=== PATIENT | female | born 1985 | race Caucasian/White ===

== ENCOUNTER 2019-08-18 08:15 | Inpatient (IN) | payer MEDICAID, OTHER ==
[2019-08-18] MEDS ORDERED: cefOXitin 2 GM Vial ONE (08:29)
[2019-08-18] MEDS ORDERED: fentaNYL 250 MCG/5 ML SDV ONE ×2 (09:11→12:00)
[2019-08-18] MEDS ORDERED: Propofol 200 MG/20 ML SDV ONE (09:12)
[2019-08-18] MEDS ORDERED: Succinylcholine 200 MG/10 ML MDV ONE (09:12)
[2019-08-18] MEDS ORDERED: Glycopyrrolate 0.2 MG/ML 5 ML MDV ONE (09:12)
[2019-08-18] MEDS ORDERED: Neostigmine Methylsulfate 1 MG/ML 5 ML Syringe ONE (09:12)
[2019-08-18] MEDS ORDERED: Rocuronium 50 MG/5 ML Vial ONE (09:12)
[2019-08-18] MEDS ORDERED: Ondansetron 4 MG/2 ML SDV ONE (09:12)
[2019-08-18] MEDS ORDERED: Dexamethasone 4 MG/ML SDV ONE (09:12)
[2019-08-18] MEDS ORDERED: Scopolamine 1.5 MG Transdermal Patch TOP SCH (09:45)
[2019-08-18] MEDS ORDERED: Celecoxib 200 MG Cap PO ONE (09:45)
[2019-08-18] MEDS ORDERED: Acetaminophen 500 MG Tab PO ONE (09:45)
[2019-08-18] MEDS ORDERED: Gabapentin 300 MG Cap PO ONE (09:45)
[2019-08-18] MEDS ORDERED: Lactated Ringers 1,000 ML ONE (09:50)
[2019-08-18] MEDS ORDERED: Dextrose 5%-Lactated Ringers 1,000 ML IV SCH (10:30)
[2019-08-18] MEDS ORDERED: cefOXitin 2 GM in Sodium Chloride 0.9% 50 ML IV ONE (11:00)
[2019-08-18] MEDS ORDERED: Lidocaine 0.4%/D5W 2 GM/500 ML BAG IV SCH (11:30)
[2019-08-18] MEDS ORDERED: Lidocaine 2% 100 MG/5 ML Syringe IVPUSH SCH (11:30)
[2019-08-18] MEDS ORDERED: Ketamine 50 MG in Sodium Chloride 0.9% 49.5 ML IV SCH (11:30)
[2019-08-18] MEDS ORDERED: Ketamine 500 MG/5 ML MDV IV SCH (11:30)
[2019-08-18] MEDS ORDERED: Labetalol 20 MG/4 ML Syringe ONE (12:32)
[2019-08-18] MEDS ORDERED: hydrOXYzine HCl 100 MG/2 ML SDV IM ONE (13:36)
[2019-08-18] MEDS ORDERED: Metoclopramide 10 MG/2 ML SDV IVPUSH PRN (14:14)
[2019-08-18] MEDS ORDERED: diphenhydrAMINE 50 MG/ML SDV IVPUSH PRN (14:14)
[2019-08-18] MEDS ORDERED: Labetalol 20 MG/4 ML Syringe IVPUSH PRN (14:14)
[2019-08-18] MEDS ORDERED: Ondansetron 4 MG/2 ML SDV IVPUSH PRN (14:14)
[2019-08-18] MEDS ORDERED: SCOPOLAMINE PATCH CHECK TOP SCH (14:14)
[2019-08-18] MEDS ORDERED: HYDROmorphone 1 MG/ML Syringe IV PRN (14:14)
[2019-08-18] MEDS ORDERED: HYDROmorphone 0.5 MG/0.5 ML Syringe IVPUSH PRN (14:14)
[2019-08-18] MEDS ORDERED: hydrOXYzine HCl 100 MG/2 ML SDV IM PRN (14:14)
[2019-08-18] MEDS: Acetaminophen Soln 650 MG/20.3 ML UD Cup PO SCH ×2 (15:43→21:10)
[2019-08-18] MEDS ORDERED: MVI, Adult with Vitamin K 10 ML, Thiamine 200 MG, Chromium/Copper/Mang/Selen/Zn 1 ML in... IV SCH ×4 (16:00)
[2019-08-18] MEDS ORDERED: Pantoprazole 40 MG Vial IVPUSH SCH (16:00)
[2019-08-18] MEDS: cefOXitin 2 GM in Sodium Chloride 0.9% 50 ML IV SCH ×2 (16:42→22:20)
[2019-08-18] MEDS: Heparin Sodium 5,000 Units/ML Vial SUBCUT SCH (21:00)
[2019-08-18] MEDS: Gabapentin 250 MG/5 ML Solution ML 470 ML Bottle PO SCH (21:04)
[2019-08-18] MEDS: Dextrose 5%-Lactated Ringers 1,000 ML IV SCH (22:01)
[2019-08-19] MEDS: Dextrose 5%-Lactated Ringers 1,000 ML IV SCH (04:00)
[2019-08-19] MEDS ORDERED: Iopamidol 612 MG/ML 50 ML SDV PO STA (04:05)
[2019-08-19] MEDS: Acetaminophen Soln 650 MG/20.3 ML UD Cup PO SCH ×4 (04:06→21:01)
[2019-08-19] MEDS: cefOXitin 2 GM in Sodium Chloride 0.9% 50 ML IV SCH ×2 (04:42→12:59)
--- NOTE | 2019-08-19 06:10 | CRLCR ---
Indication: Gastric bypass Technique: Two views of the abdomen obtained following the administration of oral contrast. Comparison: None available Findings/Impression : Post gastrojejunostomy changes with a left upper quadrant drain. Contrast opacifies the gastric pouch and jejunal segments without high-grade obstruction or gross extravasation. Dictated by Silviano Zaidi MD @ 08/19/2019 6:08:45 AM Dictated by: Silviano Zaidi MD @ 08/19/2019 06:08:51 (Electronically Signed)
[2019-08-19] MEDS ORDERED: Ondansetron 4 MG Tab.DIS PO PRN (07:54)
[2019-08-19] MEDS ORDERED: hydrOXYzine HCl 25 MG Tab PO PRN (07:59)
[2019-08-19] MEDS ORDERED: Dextrose 5%-Lactated Ringers 1,000 ML IV SCH (08:00)
[2019-08-19] MEDS ORDERED: Escitalopram 10 MG Tab PO SCH (09:00)
[2019-08-19] MEDS: Celecoxib 200 MG Cap PO SCH (09:24)
[2019-08-19] MEDS: Gabapentin 250 MG/5 ML Solution ML 470 ML Bottle PO SCH ×3 (09:25→21:01)
[2019-08-19] MEDS: Heparin Sodium 5,000 Units/ML Vial SUBCUT SCH ×2 (09:25→20:57)
[2019-08-19] MEDS ORDERED: FLU Vacc QS2019-20(6MOS+)/PF 60 MCG/0.5 ML SYRINGE IM ONE (10:00)
--- NOTE | 2019-08-19 11:00 | PN ---
DATE OF SERVICE: 08/19/2019 SUBJECTIVE: Roxana is postoperative day 1. She is up, sitting in the chair. She has been walking. Vital signs have been stable. Oral intake recorded was 1820 and urine output was 4050. LILIANA drain put out 90 mL of a light pink drainage. She states her pain is controlled. She has no questions or concerns. OBJECTIVE: GENERAL: Roxana Dick is a pleasant 33-year-old female. She is alert and orientated. VITAL SIGNS: TPR is 99.3, 70, 16. Blood pressure 110/64. HEENT: Negative. NECK: Supple. HEART: Regular rate and rhythm. LUNGS: Clear. ABDOMEN: Dressing dry and intact. LILIANA drain intact. Abdominal binder is on. EXTREMITIES: Without peripheral edema. ASSESSMENT: Laparoscopic Shawn-en-Y gastric bypass surgery and liver biopsy for morbid obesity and hepatomegaly. Date of surgery, 08/18/2019. Surgeon, Murali Zamora MD. PLAN: 1. Decrease IV to 100 mL/hour. 2. Step 2 gastric bypass diet without cereal. 3. Dressing off, may shower. 4. Zofran 4 mg ODT q.4 hours p.r.n. nausea and Atarax 25 mg p.o. q.4 hours p.r.n. pain. 5. Communication order for 1 med cup every 20 minutes, totaling 3 per hour, record at bedside. 6. Good pulmonary toilet. 7. We will evaluate p.r.n. or in a.m. Mariola Flowers PA-C /[id number]
[2019-08-19] MEDS ORDERED: MVI, Adult with Vitamin K 10 ML, Thiamine 200 MG, Chromium/Copper/Mang/Selen/Zn 1 ML in... IV SCH ×4 (16:00)
[2019-08-19] MEDS ORDERED: Pantoprazole 40 MG Delayed-Release Granules 1 Packet PO SCH (16:30)
[2019-08-20] MEDS: Acetaminophen Soln 650 MG/20.3 ML UD Cup PO SCH (04:48)
[2019-08-20] MEDS: Heparin Sodium 5,000 Units/ML Vial SUBCUT SCH (07:27)
[2019-08-20] MEDS: Celecoxib 200 MG Cap PO SCH (07:27)
[2019-08-20] MEDS ORDERED: FLU Vacc QS2019-20(6MOS+)/PF 60 MCG/0.5 ML SYRINGE IM ONE (08:00)
[2019-08-20] MEDS ORDERED: Cyanocobalamin (Vitamin B12) 1,000 MCG/ML SDV IM ONE (09:00)
--- NOTE | 2019-08-21 07:15 | DISCH ---
ADMISSION DIAGNOSES: Morbid obesity, BMI 51, anxiety, and depression. DISCHARGE DIAGNOSES: Laparoscopic Shawn-en-Y gastric bypass surgery, liver biopsy for morbid obesity, hepatomegaly. Date of surgery: 08/18/2019. Surgeon: Murali Zamora MD. HISTORY: Roxana Dick is a 33-year-old female with longstanding history of morbid obesity and increasing comorbidities. After preoperative evaluation, discussion of possible risks and possible complications, she wished to proceed with surgical procedure. HOSPITAL COURSE: Roxana had her surgery on 08/18/2019. She had no operative complications. On postoperative day #1, her upper GI was normal. She was started on a step 2 gastric bypass diet without cereal. On postoperative day #2, her oral intake was adequate at 3210, output was 1900 and she was able to be discharged to home. She received dietary instruction, vitamin B12 1000 mcg IM injection. PHYSICAL EXAMINATION: GENERAL: Roxana is a 33-year-old female. Height is 5 feet, weight is 261, BMI 51.1. HEENT: Negative. NECK: Supple. HEART: Regular rate and rhythm. LUNGS: Clear. ABDOMEN: Incisions look good. LILIANA drain will be removed. 4x4s will be placed over LILIANA drain site and extremities. Abdominal binder is on. EXTREMITIES: Without peripheral edema. DISPOSITION: Discharged to home. CONDITION: Stable and improving. FOLLOWUP: Followup appointment with Mariola Flowers PA-C, on 08/30/2019 at 11 a.m. HOME MEDICATIONS: Celebrex 200 mg p.o. daily for 14 days, Tylenol 650 mg every 6 hours schedule and then go to p.r.n. as needed, omeprazole 20 mg daily, Flonase 2 sprays in each nostril once daily, Lexapro 10 mg daily, Xanax 0.5 p.o. b.i.d. p.r.n., Zofran ODT 4 mg p.o. q.4 hours p.r.n. nausea, #30 with 1 refill. DIET: Step 2 gastric bypass diet with no cereal for 2 weeks until 09/01/2019. Drink 8 to 10 glasses of water a day and 65 g of protein. ACTIVITY: No lifting greater than 10 pounds for 2 weeks. Walk at least 6 times inside your house. Driving: Do not drive for 1 week. Shower/bathing: May shower. Keep operative site clean and dry. Wear abdominal binder for 2 weeks and then as tolerated. DISCHARGE INSTRUCTIONS: Notify provider if any fever, increased pain, swelling, redness, drainage, nausea, or vomiting. SPECIAL INSTRUCTIONS: Use incentive spirometer 10 times every hour while awake for 1 week. Keep a record of protein and liquid intake and bring to clinic appointments.
--- NOTE | 2019-08-25 13:23 | OR ---
DATE OF PROCEDURE: 08/18/2019 SURGEON: Murali Zamora MD PREOPERATIVE DIAGNOSIS: Morbid obesity. POSTOPERATIVE DIAGNOSIS: Morbid obesity. PROCEDURES: 1. Laparoscopic Shawn-en-Y gastric bypass with long limb gastroenterostomy (75900). 2. Fred-Cut needle liver biopsy (71083). ANESTHESIA: General. SHOE POLISHER: Mariola Flowers PA-C. INDICATIONS FOR PROCEDURE: This is a 33-year-old presenting with longstanding morbid obesity and increasingly significant comorbidities. After preoperative evaluation and discussion, she wished to proceed with a gastric bypass procedure. Potential risks of the procedure including bleeding, infection, leaks from various GI tract closures, problems with bowel obstruction over time, as well as possibility of cardiopulmonary, septic, or hemorrhagic complications leading to were all discussed, and the patient wishes to proceed. DETAILS OF PROCEDURE: The patient was taken to the operating room. After general endotracheal anesthesia was induced, the abdomen was prepped and draped. The patient was positioned in lithotomy position. A transverse incision was then made 15 cm inferior and 5 cm left of the xiphoid process, and the peritoneal cavity entered under direct vision with an Optiview trocar, and the peritoneal cavity was inflated to 15 mmHg pressure with CO2. The laparoscope was reinserted. No underlying trocar insertion site injuries were seen. Bilateral transversus abdominis plane blocks were then placed, and 5 additional trocars were then placed across the upper mid abdomen. General exploration revealed marked hepatomegaly with liver volume being roughly 2 to 3 times normal and liver grossly fatty infiltrated. Fred-Cut needle biopsies were obtained from the left lobe of the liver and minimal bleeding from the biopsy sites was controlled with electrocautery. The omentum was then divided in the midline up to the level of the transverse colon. This allowed identification of small bowel to ligament of Treitz. The small bowel was then traced out 150 cm distal to that point and divided transversely with a TERRIE stapler. The small bowel was then traced out additional 180 cm where the [id number] enteroenterostomy was accomplished with an internal firing of the Endo-TERRIE 60 mm stapler. Common opening was then closed transversely with the same stapler. Angles of anastomosis and mesenteric defect were approximated with some 0 Ethibond stitch, along with 4 mL of fibrin sealant. The divided end of the Shawn limb was then for a few centimeters with Harmonic scalpel along the antecolic position of the Shawn limb up to the level of the gastroesophageal junction without tension. The liver was then retracted anteriorly. The patient was noted to have no significant evidence of hiatal hernia. The gastrointestinal balloon catheter was inflated to 15 mL and pulled up snugly against the EG junction. The gastric wall over the apex balloon was then marked with electrocautery and balloon catheter deflated and pulled up into the esophagus. The lesser omental tissue adjacent to the gastric cardia was then incised, allowing dissection behind the stomach at that level. Pouch formation was initiated with transverse firing of the TERRIE stapler at the level of the cauterized gamaliel at the gastric cardia and completed with additional TERRIE staple firings up to and through the angle of His. Upon completion of the pouch, both staple lines were noted to be intact. The anvil of a 25-mm EEA stapler was then attached to a [place] sump-type tube and was brought down through the mouth and taken out through a small opening in the gastric pouch, allowing the anvil likewise to be pulled down to within the gastric pouch. The divided end of the Shawn limb was then opened and the main body of the EEA stapler passed several centimeters into the lumen of the small bowel, brought up the anvil, united with it, thus creating the gastrojejunostomy. Upon removal of the stapler, double donuts of mucosa were noted within it. The small bowel was closed off with a vascular staple line. Gastrojejunostomy was then reinforced with some 3-0 Vicryl seromuscular stitch, along with fibrin sealant. Leak test was accomplished with injection of 120 mL of air in the gastric pouch while submerged with cefoxitin-containing saline solution. A single Ibrahima-Benton drain was then taken out through the left lateral trocar site. This was positioned up against the gastrojejunostomy and from there into the splenic fossa. With no further problems noted, trocars were removed and the peritoneal cavity deflated. The incisions were closed with some 4-0 Vicryl skin stitch, which also was used to affix the drain, and the patient was taken to the recovery room in satisfactory condition. Physician cancer genetics assistant, Mariola Flowers, played an essential role in assisting in this case, helping to position the patient, retract structures as needed, as well as suturing and cutting sutures when indicated. Her presence improved patient safety and decreased the operative time. Murali Zamora MD /[id number]
== END 2019-08-20 08:13 | disposition home or self-care (01) | DRG 621 ==
LOC: JP.SDSSCHI 09:23 → JP.SDS 09:23 → EDSTATUS 10:00 → JP.MS 13:15
PROVIDERS: ADMIT Surgery; ATTEND Surgery
PROC: 0D164ZA Bypass Stomach to Jejunum, Percutaneous Endoscopic Approach (ICD-10-PCS; principal; 2019-08-18)
PROC: 0FB24ZX Excision of Left Lobe Liver, Percutaneous Endoscopic Approach, Diagnostic (ICD-10-PCS; 2019-08-18)
DX: E66.01 Morbid (severe) obesity due to excess calories (principal); F41.9 Anxiety disorder, unspecified; F32.9 Major depressive disorder, single episode, unspecified; R16.0 Hepatomegaly, not elsewhere classified; K21.9 Gastro-esophageal reflux disease without esophagitis; Z79.899 Other long term (current) drug therapy; Z90.49 Acquired absence of other specified parts of digestive tract; Z88.1 Allergy status to other antibiotic agents; Z88.0 Allergy status to penicillin; Z68.43 Body mass index [BMI] 50.0-59.9, adult
CPT/HCPCS: 36415; 74240; 81025; 82962; 86850; 86900; 86901; 88307; 88313; 90686; 94762; A9270-GY; C9113; G0008; J0171; J0330; J0694; J1100; J1170; J1644; J2001; J2405; J2704; J2710; J2795; J3010; J3410; J3411; J3490; J7042; J7050; J7120; Q9967